=== PATIENT | female | born 1990 | race Caucasian/White ===

== ENCOUNTER → 2019-07-07 | Outpatient (CLI) | payer BC ==
[2014-05-08 11:09] VITALS: BP 114/76
[~2019-07-07] MED LIST: SINCALIDE 1.41 MCG in IV NORMAL SALINE 50ML 30 ML IV ONE
--- NOTE | 2019-07-07 08:43 | RAD ---
Examination: ABDOMEN LTD History: Epigastric pain, nausea, vomiting Comparison/Correlation: None Findings: Hepatic echotexture is within upper limits of normal. No biliary dilatation. Common bile duct is unremarkable. Gallbladder is normal with no cholelithiasis or findings of inflammation. Portal venous flow is normal. Pancreas is obscured by bowel gas. Inferior vena cava is unremarkable. Right kidney measures 11.3 cm 4.0, 5.4 center. No right hydronephrosis. Right renal contour is unremarkable. No right upper quadrant ascites. Impression: Normal right upper quadrant ultrasound exam. Electronically signed by: Jose Antonio Tijerina MD (07/07/2019 8:40 AM) [facility]
--- NOTE | 2019-07-07 13:43 | RAD ---
HEPATOBILIARY SCAN WITH EJECTION FRACTION 07/07/2019 1:39 PM History: Intermittent epigastric pain, nausea, vomiting Procedure: Serial static images are obtained of the liver and biliary system in the frontal projection following IV administration of 5.5 mCi of Technetium 99m Choletec. After filling of the gallbladder, 1.41 mcg of sincalide were infused over 30 minutes and dynamic imaging continued over this period. The gallbladder ejection fraction was calculated. Findings: There is prompt hepatic clearance of tracer from the blood pool. There is homogeneous distribution throughout the liver. The gallbladder ejection fraction measures 98% (normal gallbladder EF is 35% or greater). IMPRESSION: 1. The cystic duct and common bile duct are patent. Negative for acute cholecystitis. 2. The gallbladder ejection fraction is normal Electronically signed by: Guzman Madsen MD (07/07/2019 1:40 PM) [id number]
== END | disposition home or self-care (01) ==
LOC: US 07:29
PROVIDERS: ATTEND Internal Medicine Gastroenterology
DX: R10.13 Epigastric pain (principal); R11.2 Nausea with vomiting, unspecified
CPT/HCPCS: 76705; 78227; A9537; J2805

== ENCOUNTER → 2019-07-24 | Outpatient (CLI) | payer BC ==
[2014-05-08 11:09] VITALS: BP 114/76
[~2019-07-24] MED LIST changes: +DOCU50CA9 PO; +ONDA4TAB7 PO; +OXYC1TAB15 PO; -SINCALIDE 1.41 MCG in IV NORMAL SALINE 50ML 30 ML IV ONE
[2019-07-24 14:37] LABS: BASO % 1 % (0-3); EOS % 1 % (0-3); HEMATOCRIT 39.9 % (36.0-47.0); HEMOGLOBIN 13.4 g/dL (12.0-15.5); LYMPH % 50 % (24-48); MEAN CORPUSCULAR HEMOGLOBIN 30 pg (25-35); MEAN CORPUSCULAR HGB CONC 34 g/dL (31-37); MEAN CORPUSCULAR VOLUME 89 fL (79-100); MONO # 0.5 x10^3/uL (0.0-1.1); MONO % 8 % (0-9); NEUT # 2.6 x10^3/uL (1.8-7.7); NEUT % 42 % (31-73); PLATELET COUNT 245 x10^3/uL (140-400); RED BLOOD COUNT 4.47 x10^6/uL (3.50-5.40); RED CELL DISTRIBUTION WIDTH 12.4 % (11.5-14.5); WHITE BLOOD COUNT 6.1 x10^3/uL (4.0-11.0)
[2019-07-24 14:49] LABS: ALBUMIN 4.1 g/dL (3.4-5.0); CREATININE 0.5 mg/dL (0.6-1.0); POTASSIUM 3.6 mmol/L (3.5-5.1); TOTAL BILIRUBIN 0.3 mg/dL (0.2-1.0)
[2019-07-24 14:53] LABS: CALCIUM 8.9 mg/dL (8.5-10.1)
== END | disposition home or self-care (01) ==
LOC: SURGPAT 13:32
PROVIDERS: ATTEND Surgery
DX: Z01.818 Encounter for other preprocedural examination (principal); K82.8 Other specified diseases of gallbladder
CPT/HCPCS: 36415; 80048; 82040; 82247; 85025

== ENCOUNTER 2019-07-28 06:25 | Day surgery (SDC) | payer BC ==
[~2019-07-28] VITALS: Ht 167.6 cm; Wt 70.0 kg
[~2019-07-28 06:25] MED LIST changes: -DOCU50CA9 PO; -OXYC1TAB15 PO
[2019-07-28] MEDS ORDERED: BUPIVACAINE-EPI 0.5%-1:200000 MPF 30 ML VIAL. INJ ONE (06:30)
[2019-07-28] MEDS ORDERED: PROCHLORPERAZINE 10 MG/2 ML VIAL. IV PRN (07:00)
[2019-07-28] MEDS ORDERED: MORPHINE SULFATE 2 MG/ML VIAL. IV PRN (07:00)
[2019-07-28] MEDS ORDERED: LIDOCAINE 1% PF 2 ML VIAL. ID PRN (07:00)
[2019-07-28] MEDS ORDERED: ONDANSETRON PF 4 MG/2 ML VIAL. IV PRN (07:00)
[2019-07-28] MEDS ORDERED: fentaNYL PF VIAL 100 MCG/2 ML VIAL IV PRN (07:00)
[2019-07-28] MEDS ORDERED: IV RINGERS,LACTATED 1000ML 1,000 ML IV SCH (07:00)
[2019-07-28] MEDS ORDERED: HYDROmorphone 2 MG/ML VIAL IV PRN (07:00)
[2019-07-28] MEDS ORDERED: GLUCAGON,HUMAN RECOMBINANT 1 MG/ML VIAL. ONE (07:23)
[2019-07-28] MEDS ORDERED: SURGICEL HEMOSTAT 4X8 EACH. ONE (07:24)
[2019-07-28] MEDS ORDERED: IOHEXOL 300 MG/ML 50 ML VIAL. ONE (07:24)
[2019-07-28] MEDS ORDERED: LIDOCAINE 2% PF 5 ML VIAL. ONE (07:28)
[2019-07-28] MEDS ORDERED: PROPOFOL 20 ML IV ONE (07:28)
[2019-07-28] MEDS ORDERED: fentaNYL PF VIAL 100 MCG/2 ML VIAL ONE (07:29)
[2019-07-28] MEDS ORDERED: ROCURONIUM 50 MG/5 ML VIAL. ONE (07:29)
[2019-07-28] MEDS ORDERED: SUCCINYLCHOLINE 200 MG/10 ML VIAL. ONE (07:29)
[2019-07-28] MEDS ORDERED: DESFLURANE 31 TO 60 MINUTES IH ONE (08:09)
[2019-07-28] MEDS ORDERED: DEXAMETHASONE SOD PHOS 4 MG/ML VIAL ONE (08:09)
[2019-07-28] MEDS ORDERED: diphenhydrAMINE 50 MG/ML VIAL ONE (08:09)
[2019-07-28] MEDS ORDERED: ONDANSETRON PF 4 MG/2 ML VIAL. ONE (08:10)
[2019-07-28] MEDS ORDERED: FAMOTIDINE 20 MG/2 ML VIAL ONE (08:17)
[2019-07-28] MEDS ORDERED: KETOROLAC 30 MG/ML VIAL. ONE (08:24)
[2019-07-28] MEDS ORDERED: GLYCOPYRROLATE 1 MG/5 ML VIAL. ONE (08:24)
[2019-07-28] MEDS ORDERED: NEOSTIGMINE METHYLSULFATE 5 MG/5 ML SYRINGE. ONE (08:24)
--- NOTE | 2019-07-28 08:50 | RAD ---
Examination: CHOLANGIOGRAM INTRAOPERATIVE History: Pain Comparison/Correlation: None Findings: Total 3 images were provided. Fluoroscopy was utilized for 0.17 minutes. Right upper quadrant surgical clips are present. Distention of the intrahepatic central biliary tree noted. Distention of the cystic duct remnant is evident. No suspicious filling defects involving the common hepatic duct or common bile duct on images provided. Impression: Distended biliary tree. No suspicious filling defect on either. No definite stricture. Cholecystectomy. Electronically signed by: Jose Antonio Tijerina MD (07/28/2019 8:47 AM) [facility]
[2019-07-28] MEDS: fentaNYL PF VIAL 100 MCG/2 ML VIAL IV PRN ×2 (09:12→09:44)
--- NOTE | 2019-07-28 09:22 | PDOC ---
BRIEF OPERATIVE NOTE Date: Jul 28, 2019 Pre-Op Diagnosis biliary dyskinesia Post-Op Diagnosis same Procedure Performed l/s cholecystectomy with cholangiograms Surgeon Jeremy Tree Worker Lizbeth BLACK Anesthesia Type: General Blood Loss 10cc IV Fluid 700cc Specimens Obtained GB Findings supple GB, normal grams Complications none Operative Note Wk # [id number] ASHLEY GARCIA MD Jul 28, 2019 09:22
--- NOTE | 2019-07-28 09:26 | OP ---
DATE OF SURGERY: 07/28/2019 PREOPERATIVE DIAGNOSIS: Biliary dyskinesia. POSTOPERATIVE DIAGNOSIS: Biliary dyskinesia. PROCEDURE: Laparoscopic cholecystectomy with cholangiogram. SURGEON: Adam Garcia MD GAS METER MECHANIC: WAYNE Michael ANESTHESIA: General endotracheal. ESTIMATED BLOOD LOSS: 10 mL. INTRAVENOUS FLUIDS: 700 mL. INDICATIONS: The patient is a 29-year-old with abdominal pain and nausea, brought for cholecystectomy. OPERATIVE FINDINGS: The liver was smooth, sharp and supple. Gallbladder was supple. Visual inspection of the remainder of the abdomen failed to reveal obvious abnormalities. DESCRIPTION OF PROCEDURE: The patient brought to the operating suite, given a general endotracheal anesthetic and the abdomen prepped and draped in usual sterile fashion. An infraumbilical incision was infiltrated with local, incised and a 5-mm port placed under direct vision, taking care to avoid injury to abdominal contents. Insufflation pressures were high and as such, the midclavicular port was placed carefully avoiding injury to abdominal contents. Pneumoperitoneum established. Camera inserted. Inspection carried out with results as noted above. Careful inspection of the small bowel under the umbilical port failed to reveal any evidence of injury or bleeding. The lateral port location was used for an alligator grasper and the epigastric port was placed under direct vision. Table rolled to the left and placed in reverse Trendelenburg. The gallbladder retracted superolaterally and the cystic duct and cystic artery were identified. Duct was clipped on the gallbladder side. Cholangiograms were made. This showed a moderately dilated ductal system, but no evidence of distal obstruction with free flow of contrast into the duodenum. In light of this, the catheter was removed. The cystic duct was clipped x 3 and divided, taking care to avoid injury or compromise of the common duct. Cystic artery was clipped x 2 and divided and gallbladder freed from the bed with cautery dissection and placed in an EndoCatch bag. Table returned to level. Gallbladder delivered through the epigastric incision. Epigastric incision was closed with 0 Vicryl suture. At 6-cm water, no bleeding seen from the epigastric closure or from the midclavicular port site after its removal or from the lateral location of the alligator grasper. The abdomen decompressed, camera slowly removed, no bleeding seen. Skin incisions closed with subcuticular 4-0 Monocryl. Steri-Strips and sterile dressings applied. The patient awakened from her anesthetic and taken to the recovery room in satisfactory condition. ADAM GARCIA MD DR: ABBY/alcon JOB#: [id number] / [id number]
--- NOTE | 2019-07-28 09:28 | DISCH ---
DISCHARGE INSTRUCTIONS Condition on Discharge Condition on Discharge: Stable Activity After Discharge Activity Instructions for Disc: Activity as tolerated, Avoid exertion Lifting Instructions after Dis: No heavy lifting Driving Instructions after Dis: Do not drive (3-4 days) Diet after Discharge Diet after Discharge: Regular Wound Incision Care Wound/Incision Care: Ice to area for comfort Other wound/incision instructi: november shower Sunday Follow-Up Follow up with: Jeremy next week ASHLEY GARCIA MD Jul 28, 2019 09:28
[2019-07-28 09:50] VITALS: BP 104/64
[2019-07-28] MEDS ORDERED: oxyCODONE/APAP 5/325 1 TAB TABLET PO ONE (10:00)
[2019-07-28] MEDS ORDERED: DOCU50CA9 PO (10:38)
[2019-07-28] MEDS ORDERED: OXYC1TAB15 PO (10:38)
--- NOTE | 2019-07-29 18:06 | PATHOLOGY ---
[facility] Accession Number: [id number] . 01 Material submitted: . gallbladder - GALLBLADDER . 01 Clinical history: . Biliary dyskinesia . 02 Diagnosis: Gallbladder, laparoscopic cholecystectomy: - Cholesterolosis, focal. - Chronic cholecystitis. - Reactive changes of gallbladder neck lymph node. LBQ 07/29/2019 1533 Local . 02 Comment: There are no calculi identified within the gallbladder lumen or specimen container. There is no evidence of malignancy. (JPM/db; 07/29/2019) . 02 Electronically signed: . Andrew Sofia MD, Pathologist NPI- [id number] . 01 Gross description: . The specimen is received in formalin labeled "Oates, Nita, gallbladder" and consists of an intact pink-oliver smooth shiny gallbladder measuring 10.5 x 2.3 x 1.9 cm. The margin is inked black. Opening reveals a lumen filled with viscous green bile and no calculi. The mucosa is green and velvety with scattered yellow stippling and an average wall thickness of 0.1 cm. No masses are identified. Adjacent the gallbladder neck is a lymph node measuring 0.9 x 0.7 cm. Ic Design Engineer sections are submitted in A1. (SDY; 07/28/2019) SYU/SYU 07/28/2019 1619 Local . 02 Pathologist provided ICD-10: K81.1, K82.4 . 02 CPT . 506641 Specimen Comment: A courtesy copy of this report has been sent to [phone] Specimen Comment: Report sent to Performed at: [address], [place], [place] [id number] MD John Wagner MD Phone: [phone] Performed at: 02 [facility] [address], [place] [id number] MD Andrew Sofia MD Phone: [phone]
== END 2019-07-28 10:55 | disposition home or self-care (01) ==
LOC: SURG 06:25
PROVIDERS: ATTEND Surgery
DX: K82.8 Other specified diseases of gallbladder (principal); K81.1 Chronic cholecystitis
CPT/HCPCS: 47563; 74300; 81025; A7015; J0330; J0690; J0780; J1100; J1200; J1885; J2001; J2405; J2704; J2710; J3010; J3490; J7030; Q9967; J1610

== ENCOUNTER 2020-06-13 18:19 | Observation (INO) | payer BC ==
[~2020-06-13 18:19] MED LIST changes: +DOCU50CA9 PO; +OXYC1TAB15 PO
[2020-06-13] MEDS ORDERED: IV RINGERS,LACTATED 1000ML 1,000 ML IV SCH (18:41)
[2020-06-13 18:50] LABS: BILIRUBIN,URINE NEGATIVE (NEG); CLARITY,URINE CLOUDY; COLOR,URINE YELLOW; NITRITE,URINE NEGATIVE (NEG); PROTEIN,URINE NEGATIVE (NEG-TRACE)
[2020-06-13 18:54] LABS: BACTERIA,URINE MODERATE /HPF (0-FEW); RBC,URINE 0 /HPF (0-2)
== END 2020-06-13 19:54 | disposition home or self-care (01) ==
LOC: 3 SO LND 18:19
PROVIDERS: ADMIT Obstetrics & Gynecology; ATTEND Obstetrics & Gynecology
DX: O62.9 Abnormality of forces of labor, unspecified (principal); Z3A.37 37 weeks gestation of pregnancy; Z79.899 Other long term (current) drug therapy
CPT/HCPCS: 59025; 81001; 87086; G0378; G0379

== ENCOUNTER 2020-06-28 05:47 | Inpatient (IN) | payer BC ==
[~2020-06-28] VITALS: Ht 162.6 cm; Wt 82.1 kg
[2020-06-28] MEDS ORDERED: TERBUTALINE 1 MG/ML VIAL. SQ PRN (06:00)
[2020-06-28] MEDS ORDERED: ACETAMINOPHEN 325 MG TABLET. PO PRN ×2 (06:00→13:00)
[2020-06-28] MEDS ORDERED: 0.9 % SODIUM CHLORIDE 10 ML DISP.SYRIN. IV PRN ×2 (06:00→13:00)
[2020-06-28] MEDS ORDERED: LIDOCAINE 1% PF 30 ML VIAL. INJ PRN (06:00)
[2020-06-28] MEDS ORDERED: OXYTOCIN 30 UNIT/500 ML PREMIX 500 ML IV PRN ×3 (06:00→13:00)
[2020-06-28] MEDS ORDERED: BUTORPHANOL 2 MG/ML VIAL. IVP PRN ×2 (06:00)
[2020-06-28 06:28] VITALS: BP 135/78
[2020-06-28] MEDS: IV RINGERS,LACTATED 1000ML 1,000 ML IV SCH ×2 (06:33→10:55)
[2020-06-28 07:01] LABS: BASO % 0 % (0-3); EOS # 0.1 x10^3/uL (0.0-0.7); EOS % 1 % (0-3); HEMATOCRIT 34.4 % (36.0-47.0); HEMOGLOBIN 11.5 g/dL (12.0-15.5); LYMPH # 2.7 x10^3/uL (1.0-4.8); LYMPH % 31 % (24-48); MEAN CORPUSCULAR HEMOGLOBIN 31 pg (25-35); MEAN CORPUSCULAR HGB CONC 34 g/dL (31-37); MEAN CORPUSCULAR VOLUME 91 fL (79-100); MONO # 0.6 x10^3/uL (0.0-1.1); MONO % 6 % (0-9); NEUT # 5.5 x10^3/uL (1.8-7.7); NEUT % 62 % (31-73); PLATELET COUNT 143 x10^3/uL (140-400); RED BLOOD COUNT 3.76 x10^6/uL (3.50-5.40); WHITE BLOOD COUNT 8.9 x10^3/uL (4.0-11.0)
[2020-06-28 07:02] LABS: BILIRUBIN,URINE NEGATIVE (NEG); CLARITY,URINE CLEAR; COLOR,URINE YELLOW; NITRITE,URINE NEGATIVE (NEG); PROTEIN,URINE NEGATIVE (NEG-TRACE); UROBILINOGEN,URINE 0.2 mg/dL (0.2 mg/dL)
[2020-06-28 07:20] LABS: BACTERIA,URINE MODERATE /HPF (0-FEW); RBC,URINE 0 /HPF (0-2)
--- NOTE | 2020-06-28 09:02 | PDOC1 ---
INSURANCE CLAIMS PROCESSOR H&P Date of Admission: Date of Admission: Jun 28, 2020 at 05:47 History of Present Illness: EDC: 07/04/20 LMP: 09/28/19 30y @ 39.1 by L=9 presents for scheduled indxn. The pt has had a relative uncomplicated . She has had a few ctxs leading up to this date. PMH: Anemia PSH: Lap Fatuma, knee surgery Meds: PNV All: NKDA OBHx: TSVD x 2 SH: no tob, no EtOH FH: noncontributory Medications: Meds: Current Medications Medications (Trade) Dose Ordered Sig/Rashid Route PRN Reason Start Time Stop Time Status Last Admin Dose Admin Ringer's Solution 1,000 ml @ 125 mls/hr Q8H IV 06/28/20 06:00 06/28/20 06:33 Oxytocin 500 ml @ 0 mls/hr CONT PRN PRN IV Post delivery bleeding 06/28/20 06:00 06/28/20 07:18 Allergies: Coded Allergies: No Known Drug Allergies (Unverified , 07/28/19) Physical Exam: Vital Signs: Vital Signs Date Time Temp Pulse Resp B/P (MAP) Pulse Ox O2 Delivery O2 Flow Rate FiO2 06/28/20 06:28 98.4 94 18 135/78 (97) Room Air 98.4 PE: GENERAL: No apparent distress. Alert and oriented. HEENT: Head normocephalic, atraumatic. NECK: Supple LUNGS: Clear to auscultation. HEART: RRR, S1, S2 present, pulses intact ABDOMEN: Soft, positive bowel sounds. EXTREMITIES: No cyanosis or edema. NEUROLOGIC: Normal speech, normal tone PSYCHIATRIC: Normal affect, normal mood. SKIN: No ulceration. FHT: 120s +acels/no decels/mLTV [place]: 10-15 min SVE: 1-2/50/-3 Labs: Laboratory Tests Test 06/28/20 06:08 06/28/20 06:10 06/28/20 06:20 Urine Collection Type Unknown Urine Color Yellow Urine Clarity Clear Urine pH 6.0 (<5.0-8.0) Urine Specific [place] <=1.005 (1.000-1.030) Urine Protein Negative mg/dL (NEG-TRACE) Urine Glucose (UA) Negative mg/dL (NEG) Urine Ketones (Stick) Negative mg/dL (NEG) Urine Blood Negative (NEG) Urine Nitrite Negative (NEG) Urine Bilirubin Negative (NEG) Urine Urobilinogen Dipstick 0.2 mg/dL (0.2 mg/dL) Urine Leukocyte Esterase Large (NEG) Urine RBC 0 /HPF (0-2) Urine WBC 11-20 /HPF (0-4) Urine Squamous Epithelial Cells Mod /LPF Urine Bacteria Moderate /HPF (0-FEW) SARS-CoV-2 Antigen (Rapid) Negative (NEGATIVE) White Blood Count 8.9 x10^3/uL (4.0-11.0) Red Blood Count 3.76 x10^6/uL (3.50-5.40) Hemoglobin 11.5 g/dL (12.0-15.5) L Hematocrit 34.4 % (36.0-47.0) L Mean Corpuscular Volume 91 fL (79-100) Mean Corpuscular Hemoglobin 31 pg (25-35) Mean Corpuscular Hemoglobin Concent 34 g/dL (31-37) Red Cell Distribution Width 13.0 % (11.5-14.5) Platelet Count 143 x10^3/uL (140-400) Neutrophils (%) (Auto) 62 % (31-73) Lymphocytes (%) (Auto) 31 % (24-48) Monocytes (%) (Auto) 6 % (0-9) Eosinophils (%) (Auto) 1 % (0-3) Basophils (%) (Auto) 0 % (0-3) Neutrophils # (Auto) 5.5 x10^3/uL (1.8-7.7) Lymphocytes # (Auto) 2.7 x10^3/uL (1.0-4.8) Monocytes # (Auto) 0.6 x10^3/uL (0.0-1.1) Eosinophils # (Auto) 0.1 x10^3/uL (0.0-0.7) Basophils # (Auto) 0.0 x10^3/uL (0.0-0.2) Platelet Estimate Pending Laboratory Tests 06/28/20 06:20 Laboratory Tests 06/28/20 06:20 Assessment & Plan: A/P 30y @ 39.1 by L=9 1.) Indxn on 8U of Pit 2.) Anemia 3.) Fetus cat I FHT 4.) TDAP given 04/15/20 5.) Boy - Michael (sp) 6.) GBS neg ROXANN BARNES MD Jun 28, 2020 09:02
[2020-06-28 09:53] LABS: PLT ESTIMATE DECREASED (ADEQUATE)
[2020-06-28] MEDS ORDERED: ROPIVacaine 0.2% PF 10 ML VIAL. ONE ×2 (10:58→11:00)
[2020-06-28] MEDS ORDERED: L&D EPIDURAL SYRINGE 50 ML ONE (10:58)
[2020-06-28] MEDS ORDERED: L&D EPIDURAL 50 ML SYRINGE. ONE (11:00)
[2020-06-28] MEDS ORDERED: LIDOCAINE 2% PF 5 ML VIAL. ONE (12:10)
[2020-06-28] MEDS ORDERED: IV RINGERS,LACTATED 500ML 500 ML IV PRN (12:30)
[2020-06-28] MEDS ORDERED: BUPIVACAINE MPF 0.25% 30 ML VIAL. EPID PRN (12:30)
[2020-06-28] MEDS ORDERED: L&D EPIDURAL SYRINGE 50 ML EPID PRN (12:30)
[2020-06-28] MEDS ORDERED: ROPIVacaine 0.2% PF 10 ML VIAL. EPID PRN (12:30)
[2020-06-28] MEDS ORDERED: NALOXONE 0.4 MG/ML VIAL. IV PRN (12:30)
[2020-06-28] MEDS ORDERED: ATROPINE 0.5 MG/5 ML DISP.SYRINGE. IV PRN (12:30)
[2020-06-28] MEDS ORDERED: PHENYLEPHRINE in 0.9% NACL PF 1 MG/10 ML SYRINGE. IV PRN (12:30)
[2020-06-28] MEDS ORDERED: fentaNYL PF VIAL 100 MCG/2 ML VIAL EPID PRN (12:30)
[2020-06-28] MEDS ORDERED: ePHEDrine PF IN SALINE 50 MG/10 ML SYRINGE. IV PRN (12:30)
[2020-06-28] MEDS ORDERED: IV RINGERS,LACTATED 1000ML 1,000 ML IV SCH (12:30)
--- NOTE | 2020-06-28 12:56 | PDOC ---
VAGINAL DELIVERY DATE DATE: 06/28/20 TIME: 12:56 TIME Patient delivered a viable male over intact perineum at 1245. Wt 7lb 3oz. Apgars 9/9. Placenta delivered spontaneously, intact with 3VC. No lacerations noted. Good hemostasis noted. 20 U of Pit given with IVF. EBL 200cc. WEIGHT Weight [ ] ROXANN BARNES MD Jun 28, 2020 12:56
[2020-06-28] MEDS ORDERED: TDaP (Adacel) per PROTOCOL. MC PRN (13:00)
[2020-06-28] MEDS ORDERED: MAGNESIUM HYDROXIDE 2,400 MG/30 ML ORAL.SUSP. PO PRN (13:00)
[2020-06-28] MEDS ORDERED: MMR per PROTOCOL. MC PRN (13:00)
[2020-06-28] MEDS ORDERED: HYDROCORTISONE 1% TOPICAL OINTMENT 30GM TUBE. TP PRN (13:00)
[2020-06-28] MEDS ORDERED: diphenhydrAMINE HCL 25 MG CAPSULE PO PRN (13:00)
[2020-06-28] MEDS ORDERED: SIMETHICONE 80 MG TAB.CHEW PO PRN (13:00)
[2020-06-28] MEDS ORDERED: BENZOCAINE 20% TOPICAL AEROSOL SPRAY 57GM CAN. TP PRN (13:00)
[2020-06-28] MEDS ORDERED: ZOLPIDEM 5 MG TABLET. PO PRN (13:00)
[2020-06-28] MEDS ORDERED: MAG HYDROX/ALUMINUM HYD/SIMETH 30 ML ORAL.SUSP PO PRN (13:00)
[2020-06-28] MEDS ORDERED: PHENYLEPH/MINERAL OIL/PETROLAT RECTAL OINTMENT TUBE. RC PRN (13:00)
[2020-06-28 15:15] VITALS: BP 120/75
[2020-06-28 16:30] VITALS: BP 125/86
[2020-06-28] MEDS ORDERED: IV NORMAL SALINE 1000ML BAG 1,000 ML IV SCH (19:30)
[2020-06-28 20:05] VITALS: BP 89/57
[2020-06-28] MEDS: IBUPROFEN 400 MG TABLET. PO PRN (20:10)
[2020-06-29 00:30] VITALS: BP 97/80
[2020-06-29] MEDS: oxyCODONE/APAP 5/325 1 TAB TABLET PO PRN ×2 (00:49→21:25)
[2020-06-29 04:50] VITALS: BP 106/73
[2020-06-29 07:59] LABS: HEMATOCRIT 29.9 % (36.0-47.0); HEMOGLOBIN 9.9 g/dL (12.0-15.5); RED BLOOD COUNT 3.3 x10^6/uL (3.50-5.40); WHITE BLOOD COUNT 9.4 x10^3/uL (4.0-11.0)
[2020-06-29] MEDS: PRENATAL MULTIVITAMIN TABLET. PO SCH (08:09)
[2020-06-29] MEDS: DOCUSATE SODIUM 100 MG CAPSULE. PO PRN ×2 (08:09→21:25)
[2020-06-29] MEDS: IBUPROFEN 400 MG TABLET. PO PRN (08:10)
[2020-06-29] MEDS: FERROUS SULFATE 325 MG TABLET. PO SCH ×2 (08:11→21:25)
--- NOTE | 2020-06-29 09:50 | PDOC ---
ASSEMBLER FINGER BUFFS PROGRESS NOTE Date of Service: DATE: 06/29/20 TIME: 09:50 Subjective: Pt with good pain control. Cesar PO. Voiding. Minimal lochia. Objective: Vital Signs: Vital Signs Date Time Temp Pulse Resp B/P (MAP) Pulse Ox O2 Delivery O2 Flow Rate FiO2 06/28/20 15:15 98.2 94 18 120/75 (90) 97 Room Air 98.2 Vital Signs Date Time Temp Pulse Resp B/P (MAP) Pulse Ox O2 Delivery O2 Flow Rate FiO2 06/29/20 04:50 98.2 71 16 106/73 (84) 96 Room Air 98.2 Labs: Laboratory Tests Test 06/29/20 07:30 White Blood Count 9.4 x10^3/uL (4.0-11.0) Red Blood Count 3.30 x10^6/uL (3.50-5.40) L Hemoglobin 9.9 g/dL (12.0-15.5) L Hematocrit 29.9 % (36.0-47.0) L Mean Corpuscular Volume 91 fL (79-100) Mean Corpuscular Hemoglobin 30 pg (25-35) Mean Corpuscular Hemoglobin Concent 33 g/dL (31-37) Red Cell Distribution Width 13.0 % (11.5-14.5) Platelet Count 117 x10^3/uL (140-400) L Laboratory Tests 06/29/20 07:30 Laboratory Tests 06/29/20 07:30 Physical Exam: GENERAL: No apparent distress. Alert and oriented. HEENT: Head normocephalic, atraumatic. NECK: Supple LUNGS: Clear to auscultation. HEART: RRR, S1, S2 present, pulses intact ABDOMEN: Soft, positive bowel sounds. EXTREMITIES: No cyanosis or edema. NEUROLOGIC: Normal speech, normal tone PSYCHIATRIC: Normal affect, normal mood. SKIN: No ulceration. FFNT below umb No C/C/E Assessment & Plan: A/P 30y PPD #1 s/p 1.) PP doing well 2.) Anemia Hgb 11.5 -> 9.9 3.) TDAP given 04/15/20 4.) Cont PP ROXANN Hussein MD Jun 29, 2020 09:50
[2020-06-29 11:41] VITALS: BP 98/66
[2020-06-29 18:15] VITALS: BP 103/70
[2020-06-29 22:49] VITALS: BP 105/65
[2020-06-30 05:45] VITALS: BP 102/63
[2020-06-30] MEDS: FERROUS SULFATE 325 MG TABLET. PO SCH (08:47)
[2020-06-30] MEDS: DOCUSATE SODIUM 100 MG CAPSULE. PO PRN (08:47)
[2020-06-30] MEDS: IBUPROFEN 400 MG TABLET. PO PRN (08:48)
[2020-06-30] MEDS: PRENATAL MULTIVITAMIN TABLET. PO SCH (08:48)
--- NOTE | 2020-06-30 09:01 | PDOC ---
CEMENT CAR DUMPER PROGRESS NOTE Date of Service: DATE: 06/30/20 TIME: 09:00 Subjective: Pt with good pain control. Cesar PO. Voiding. Minimal lochia Objective: Vital Signs: Vital Signs Date Time Temp Pulse Resp B/P (MAP) Pulse Ox O2 Delivery O2 Flow Rate FiO2 06/29/20 11:41 97.9 82 20 98/66 (77) 98 97.9 06/29/20 21:15 Room Air Vital Signs Date Time Temp Pulse Resp B/P (MAP) Pulse Ox O2 Delivery O2 Flow Rate FiO2 06/30/20 05:45 98.2 79 14 102/63 (76) 96 Room Air 98.2 Physical Exam: GENERAL: No apparent distress. Alert and oriented. HEENT: Head normocephalic, atraumatic. NECK: Supple LUNGS: Clear to auscultation. HEART: RRR, S1, S2 present, pulses intact ABDOMEN: Soft, positive bowel sounds. EXTREMITIES: No cyanosis or edema. NEUROLOGIC: Normal speech, normal tone PSYCHIATRIC: Normal affect, normal mood. SKIN: No ulceration. FFNT below umb no C/C/E Assessment & Plan: A/P 30y PPD #2 s/p 1.) PP doing well 2.) Anemia Hgb 11.5 -> 9.9 3.) TDAP given 04/15/20 4.) D/c home ROXANN BARNES MD Jun 30, 2020 09:01
[2020-06-30] MEDS ORDERED: DOCU-109 PO (09:03)
[2020-06-30] MEDS ORDERED: IBUP-1060 PO (09:03)
[2020-06-30 11:15] VITALS: BP 113/79
--- NOTE | 2020-06-30 11:40 | NUR ---
Discharge and follow up instructions reviewed and given to pt along with 2 Rx. Pt denied any questions or complaints at this time. Pt ambulated out of the hospital with her S/O and infant by her side.
== END 2020-06-30 11:40 | disposition home or self-care (01) | DRG 807 ==
LOC: 3 SO LND 05:47 → 3 NORTH 15:15
PROVIDERS: ADMIT Obstetrics & Gynecology; ATTEND Obstetrics & Gynecology
PROC: 10E0XZZ Delivery of Products of Conception, External Approach (ICD-10-PCS; principal; 2020-06-28)
DX: O99.02 Anemia complicating childbirth (principal); D64.9 Anemia, unspecified; Z37.0 Single live birth; Z3A.39 39 weeks gestation of pregnancy; Z90.49 Acquired absence of other specified parts of digestive tract; Z20.828 Contact with and (suspected) exposure to other viral communicable diseases
CPT/HCPCS: 36415; 81001; 85025; 85027; 86592; 86850; 86900; 86901; 87086; 87426; J2590; J2795; J3010; J7120; U0003; G0378

== ENCOUNTER → 2021-07-14 | Outpatient (CLI) | payer BC, OTHER ==
[~2021-07-14] MED LIST changes: +DOCU-109 PO; +IBUP-1060 PO
--- NOTE | 2021-07-14 09:35 | RAD ---
Site ID: [id number] First trimester OB ultrasound. INDICATION: 31 years Female Reason: UNSURE DATES . . FINDINGS: There is a normal-appearing single intrauterine . An embryo is seen with cardiac a ctivity at 173 beats per minute. The gestational sac has a normal shape. The crown-rump length is at 10 weeks and 4 days. KADY is 02[birth year]/20[birth year]. The maternal adnexa demonstrate no significant abnormality. The right ovary is 2.6 x 1.8 x 1.5 cm. Th e left ovary is 3.6 x 2.1 x 2.1 cm.. No significant fluid collection is seen in the cul-de-sac. Doppl er evaluation demonstrates normal vascularity and arterial waveforms in both ovaries. IMPRESSION: Live single intrauterine . Electronically signed by: Pedro Last MD (07/14/2021 9:33 AM) [id number]
== END ==
LOC: US 06:53
PROVIDERS: ATTEND Obstetrics & Gynecology
DX: O09.71 Supervision of high risk pregnancy due to social problems, first trimester (principal); Z3A.10 10 weeks gestation of pregnancy
CPT/HCPCS: 76801

== ENCOUNTER → 2021-09-20 | Outpatient (CLI) | payer OTHER ==
--- NOTE | 2021-09-21 10:12 | RAD ---
EXAM: Ultrasound US OB >14 WEEKS 09/20/2021 2:39 PM INDICATION: Second trimester , anatomy scan. COMPARISON: OB ultrasound 07/14/2021 FINDINGS: There is a single living intrauterine gestation in transverse position. heart rate is 137 bpm. Placenta is posterior. The following anatomy as visualized: Four-chamber heart, three-vessel cord, cord insertion, yaquelin dder, stomach, kidneys, spine. brain is visualized but intracranial structures are not well servando luated due to position. biometry: Biparietal diameter: 4.67 cm, 20 weeks 1 day Head circumference: 17.31 cm, 19 weeks 6 days Abdominal circumference: 15.1 cm, 20 weeks 3 days Femur length: 3.33 cm, 20 weeks 3 days HC/AC ratio: 1.15 LILY: 10.7 cm Estimated gestational age by ultrasound: 20 weeks 2 days. Estimated weight: 347 g. IMPRESSION: 1. Single living intrauterine in transverse position. Estimated gestational age 20 weeks 2 days. Estimated weight 347 g. 2. No definite anomalies identified. Limited evaluation of intracranial structures due to positioning. This could be reevaluated on follow-up ultrasound. Electronically signed by: Belinda Oshea MD (09/21/2021 10:09 AM) [id number]
== END ==
LOC: US 14:37
PROVIDERS: ATTEND Obstetrics & Gynecology
DX: Z34.82 Encounter for supervision of other normal pregnancy, second trimester (principal); Z3A.20 20 weeks gestation of pregnancy
CPT/HCPCS: 76805